=== PATIENT | female | born 1970 | race Caucasian/White ===

== ENCOUNTER 2016-06-14 14:24 | Emergency (ER) | payer OTHER ==
[2016-06-14 14:36] VITALS: TEMP 97.6; BMI 25.2
[2016-06-14 15:09] LABS: AUTOMATED BASOPHIL 0.8 % (0-2); AUTOMATED EOSINOPHIL 0.1 % (0-5); AUTOMATED LYMPH 8.5 % (17-44); AUTOMATED NEUTROPHIL 86.6 % (45-76); MPV 8.8 fL (7.4-10.4)
[2016-06-14 15:19] LABS: BLOOD UREA NITROGEN 10 MG/DL (7-17); CALCIUM 9.7 MG/DL (8.4-10.2); CALCULATED OSMOLALITY 277 MOs/Kg (270-290); CHLORIDE 104 mEq/L (98-107); GLUCOSE 123 MG/DL (70-99); SODIUM LEVEL 144 mEq/L (137-146); TOTAL PROTEIN 8.5 G/DL (6.3-8.2)
[2016-06-14] MEDS ORDERED: HYDROmorphone 1 MG INJECTION IV ONE (16:12)
[2016-06-14] MEDS ORDERED: ONDANSETRON HCL 4 MG/2 ML VIAL IV ONE (16:12)
[2016-06-14] MEDS ORDERED: NS 1,000 ML IV ONE (16:12)
--- NOTE | 2016-06-14 16:16 | EDPRACDOC ---
- General Information Chief Complaint: Abdominal Pain Stated Complaint: N/V/D Time Seen by Provider: 06/14/16 16:09 Information Source: Patient Mode Of Arrival: Car Home Medications: Home Medications Levothyroxine Sodium 200 mcg PO DAILY #30 tablet 09/03/14 Aspirin 81 mg PO DAILY 02/15/16 Ciprofloxacin HCl [Cipro] 500 mg PO BID #20 tab 06/14/16 Ondansetron [Zofran Odt] 4 mg PO Q6H PRN #20 tab.rapdis 06/14/16 Oxycodone HCl/Acetaminophen [Percocet 5-325 mg Tablet] 1 each PO Q4 #20 tablet 06/14/16 Promethazine [Phenergan] 25 mg PO Q8H PRN 06/14/16 Allergies/Adverse Reactions: Allergies Allergy/AdvReac Type Severity Reaction Status Date / Time Sulfa (Sulfonamide Allergy Hives* Verified 02/15/16 10:41 Antibiotics) [Sulfa(Sulfonamide Antibiotics)] - History of Present Illness Onset: 2 days HPI: PATIENT PRESENTS WITH NAUSEA AND VOMITING AND ABDOMINAL PAIN IN LOWER QUADS FOR 3 DAYS. NO FEVER. MILD COUGH AND CONGESTION. DIARRHEA PRESENT WELL. Pain Location: Reports: RLQ, LLQ Pain Context: Reports: Spontaneous Pain Severity: Moderate Pain Quality: Reports: Aching Pain Radiation: Reports: No Radiation Last Menstrual Period: hysterectomy : No Adult Abdominal History: Denies: Urolithiasis, Bowel Obstruction Female Abdominal History: Denies: Urolithiasis Female Associated Signs & Symptoms: Reports: Nausea, Vomiting, Diarrhea Oral Intake: Decreased Urinary Output: Normal ED Past Medical History - History Reviewed Yes Nurses notes reviewed and agree except as marked Travel Outside of [place] in the Last 3 Months?: No - Patient Medical History Cardiac History: Reports: Hypertension (histoy of HTN in system, patient denies at this time), Heart Attack (age 35), Cardiac Catheterization (PCTI), Hypercholesterolemia Psychological History: Reports: Depression, Anxiety Systemic History: Reports: Hypothyroidism Additional Past Medical History: RIGHT ANKLE FRACTURE WITH LIMITED FOLLOW-UP AND SHORTENED IMMOBILIZATION Surgical History: Reports: Cardiac Catheterization (PCTI), Tonsillectomy/ Adnoidectomy - Social Medical History Smoking Status: Heavy tobacco smoker (5 or more cigarettes/day or daily pipe/ cigar) EDM Review of Systems - Review of Systems ROS Negative Except as Marked: Yes All systems reviewed and were negative except as marked Constitutional: No Symptoms Reported. negative: Fever, Chills, Weakness, Fatigue, Loss of Appetite Eyes: No Symptoms Reported. negative: Redness, Blurred Vision, Double Vision, Discharge, Pain, Light Sensitive, Photophobia Ears: No Symptoms Reported. negative: Pain, Hearing Loss, Drainage, Ear Pulling Throat: No Symptoms Reported. negative: Pain, Swelling Nose: No Symptoms Reported. negative: Congestion, Bleeding, Discharge, Injection, Swelling, Deformity, Ecchymosis, Tender, Abrasion, Laceration Mouth: No Symptoms Reported. negative: Pain, Drooling Respiratory: No Symptoms Reported. negative: Cough, Brassy Cough, Barky Cough, Shortness of Breath, Wheezing, Hemoptysis Cardiovascular: No Symptoms Reported. negative: Chest Pain, Palpitations, Syncope, Edema, Orthopnea, PND, Skin Mottling, Cyanosis Gastrointestinal: Diarrhea, Nausea, Pain, Vomiting. negative: Constipation, Formula Intolerance, Melena Genitourinary: No Symptoms Reported. negative: Dysuria, Hematuria, Frequency, Discharge, Bleeding, Testicular Pain, Neurological: No Symptoms Reported. negative: Headache, Dizziness, Seizure, Numbness, Weakness, Speech Difficulty, Gait Difficulty Musculoskeletal: No Symptoms Reported. negative: Neck, Chestwall, Ribs, Back, Shoulder, Arm, Elbow, Forearm, Wrist, Hand, Pelvis, Hip, Femur, Knee, Leg, Ankle , Foot Integumentary: No Symptoms Reported. negative: Itching, Rash, Bruising, Wound Allergic/Immunologic: No Symptoms Reported. negative: Hives, Itching Hematologic: No Symptoms Reported. negative: Lymphadenopathy, Easy Bruising, Easy Bleeding Endocrine: No Symptoms Reported. negative: Weight Gain, Weight Loss Psychiatric: No Symptoms Reported. negative: Anxiety, Depression, Hallucinations, Insomnia, Suicidal - Physical Exam Constitutional: Alert (Awake), No apparent distress Oriented to: Time, Person, Place Last recorded Vital Signs: Last Vital Signs Temp 97.6 F 06/14/16 14:32 Pulse 68 06/14/16 16:45 Resp 18 06/14/16 16:45 BP 153/88 06/14/16 16:45 Pulse Ox 95 06/14/16 16:45 Oxygen Pulse Oxygen Saturation 95 O2 Device Room Air Oxygen Flow Rate Fraction of Inspired Oxygen ( FIO2) - HEENT Head: Normal ( normocephalic) Eye Exam: Normal (PERRL, EOMI, Sclera white) Oropharynx: Normal (Pharynx:Moist without exudate,Gums-no swelling) Tympanic Membrane: Normal ENT EAC: Normal TMJ: Normal Nose: No Symptoms Reported (septum midline) Neck: Normal (FROM, trachea at midline) - Respiratory/Cardiovascular Respiratory: Normal - CTA (BBS clear to auscultation without adventitious sounds ) Cardiovascular: Normal (RRR without murmur, gallop or rub) - GI Auscultation: Normal (NABS) Palpation: Normal (Soft,No rebound or guarding, non distended) Tenderness: Non tender Calles's Sign: Negative - Musculoskeletal Back: Normal (Non-Tender) Extremities: Normal (Normal tone, Pulses 2+ No cyanosis or edema, FROM) - Integumentary Skin: Normal, Warm, Dry Lymphatics: Normal (no adenopathy) - Neurologic Memory Impaired: Normal Motor Function: Normal (Normal tone, Pulses 2+ No cyanosis or edema, FROM) Cranial Nerve: Normal (CN II-X11 intact sensation, strength 5/5) Cerebellar: Normal Mood Description: Normal Perception: Normal - Differential Diagnosis Intussusception - Results 06/14/16 14:39 06/14/16 14:39 WBC 13.6 xk/uL (3.8-10.8) H 06/14/16 14:39 RBC 5.08 xM/uL (4.20-5.40) 06/14/16 14:39 Hgb 17.4 g/dL (12.0-16.0) H 06/14/16 14:39 Hct 51.9 % (36-47) H 06/14/16 14:39 MCV 102 fL (81-99) H 06/14/16 14:39 MCH 34.3 pg (27-32) H 06/14/16 14:39 MCHC 33.6 g/dl (33-36) 06/14/16 14:39 RDW 15.1 % (11.5-14.5) H 06/14/16 14:39 Plt Count 276 xk/uL (130-400) 06/14/16 14:39 MPV 8.8 fL (7.4-10.4) 06/14/16 14:39 Neut % (Auto) 86.6 % (45-76) H 06/14/16 14:39 Lymph % (Auto) 8.5 % (17-44) L 06/14/16 14:39 Braxton % (Auto) 4.0 % (3-10) 06/14/16 14:39 Eos % (Auto) 0.1 % (0-5) 06/14/16 14:39 Baso % (Auto) 0.8 % (0-2) 06/14/16 14:39 Absolute Neuts (auto) 11.70 xk/uL (1.7-8.2) H 06/14/16 14:39 Absolute Lymphs (auto) 1.09 xk/uL (0.65-4.75) 06/14/16 14:39 Sodium 144 mEq/L (137-146) 06/14/16 14:39 Potassium 3.7 mEq/L (3.5-5.1) 06/14/16 14:39 Chloride 104 mEq/L (98-107) 06/14/16 14:39 Carbon Dioxide 25 mMOL/L (22-33) 06/14/16 14:39 Anion Gap 19 mEq/L (8-16) H 06/14/16 14:39 BUN 10 MG/DL (7-17) 06/14/16 14:39 Creatinine 0.80 MG/DL (0.52-1.04) 06/14/16 14:39 Estimated GFR (MDRD) > 60 mL/min (>=60) 06/14/16 14:39 Glucose 123 MG/DL (70-99) H 06/14/16 14:39 Calculated Osmolality 277 MOs/Kg (270-290) 06/14/16 14:39 Calcium 9.7 MG/DL (8.4-10.2) 06/14/16 14:39 Total Bilirubin 1.0 MG/DL (0.2-1.3) 06/14/16 14:39 AST 20 IU/L (14-36) 06/14/16 14:39 ALT 27 IU/L (9-52) 06/14/16 14:39 Alkaline Phosphatase 63 IU/L (38-126) 06/14/16 14:39 Total Protein 8.5 G/DL (6.3-8.2) H 06/14/16 14:39 Albumin 4.9 G/DL (3.5-5.0) 06/14/16 14:39 Amylase 71 IU/L (30-110) 06/14/16 14:39 Lipase 49 U/L (23-300) 06/14/16 14:39 Urine Color Yellow 06/14/16 18:15 Urine Clarity Clear 06/14/16 18:15 Urine pH 6.0 (5.0-8.0) 06/14/16 18:15 Ur Specific [place] 1.010 (1.003-1.035) 06/14/16 18:15 Urine Protein 1+ (NEG/TRACE) H 06/14/16 18:15 Urine Glucose (UA) Neg (NEGATIVE) 06/14/16 18:15 Urine Ketones Neg (NEGATIVE) 06/14/16 18:15 Urine Occult Blood 1+ (NEG/TRACE) H 06/14/16 18:15 Urine Nitrite Neg (NEGATIVE) 06/14/16 18:15 Urine Bilirubin Neg (NEGATIVE) 06/14/16 18:15 Urine Urobilinogen <2.0 MG/DL (0-1) 06/14/16 18:15 Ur Leukocyte Esterase Neg (NEGATIVE) 06/14/16 18:15 Urine RBC 0-2 (0-5) 06/14/16 18:15 Urine WBC 2-5 (0-5) 06/14/16 18:15 Ur Epithelial Cells 4+ 06/14/16 18:15 Urine Bacteria Few (NEG/FEW) 06/14/16 18:15 Urine Mucus Mod (NEG/OCC) H 06/14/16 18:15 Microbiology 06/14/16 16:50 Influenza Type A Antigen Screen - Final Nasal Washing/Aspirate Or Swab NEGATIVE Please note: A NEGATIVE result does not exclude an influenza virus infection. It is a presumptive result and, if required, confirmation should be done using either a virus culture or an FDA-cleared influenza A&B molecular assay. ("NORMAL" value = "NEGATIVE".) Influenza Type B Antigen Screen - Final NEGATIVE Please note: A NEGATIVE result does not exclude an influenza virus infection. It is a presumptive result and, if required, confirmation should be done using either a virus culture or an FDA-cleared influenza A&B molecular assay. ("NORMAL" value = "NEGATIVE".) Lab Results 06/14/16 06/14/16 06/14/16 18:15 14:39 14:39 WBC 13.6 H RBC 5.08 Hgb 17.4 H Hct 51.9 H MCV 102 H MCH 34.3 H MCHC 33.6 RDW 15.1 H Plt Count 276 MPV 8.8 Neut % (Auto) 86.6 H Lymph % (Auto) 8.5 L Braxton % (Auto) 4.0 Eos % (Auto) 0.1 Baso % (Auto) 0.8 Absolute Neuts (auto) 11.70 H Absolute Lymphs (auto) 1.09 Sodium 144 Potassium 3.7 Chloride 104 Carbon Dioxide 25 Anion Gap 19 H BUN 10 Creatinine 0.80 Estimated GFR (MDRD) > 60 Glucose 123 H Calculated Osmolality 277 Calcium 9.7 Total Bilirubin 1.0 AST 20 ALT 27 Alkaline Phosphatase 63 Total Protein 8.5 H Albumin 4.9 Amylase 71 Lipase 49 Urine Color Yellow Urine Clarity Clear Urine pH 6.0 Ur Specific [place] 1.010 Urine Protein 1+ H Urine Glucose (UA) Neg Urine Ketones Neg Urine Occult Blood 1+ H Urine Nitrite Neg Urine Bilirubin Neg Urine Urobilinogen <2.0 Ur Leukocyte Esterase Neg Urine RBC 0-2 Urine WBC 2-5 Ur Epithelial Cells 4+ Urine Bacteria Few Urine Mucus Mod H - Departure Yes I personally saw and evaluated the patient. Disposition: Home Condition: Stable Final Diagnosis: Gastroenteritis Instructions: Acute Abdominal Pain (ED), Gastroenteritis (ED) Education/Counseling Given To: Patient Education/Counseling Given Regarding: Diagnosis, Treatment, Prognosis, Follow Up Referrals: Harrison James Jr, MD [Primary Care Provider] - One Week Ernesto Mei MD [Staff Physician] - One Week Prescriptions: Ciprofloxacin HCl [Cipro] 500 mg PO BID #20 tab Ondansetron [Zofran Odt] 4 mg PO Q6H PRN #20 tab.rapdis PRN Reason: Nausea/Vomiting Oxycodone HCl/Acetaminophen [Percocet 5-325 mg Tablet] 1 each PO Q4 #20 tablet - Physician Consulted Surgery Time Called: 18:41 Provider Called: Ernesto Mei (AFTER REVIEW OF CT- NO CLINICAL SIGNIFICANCE TO INTUSSCEPTION. OK TO D/C ) Time Visual Communications Instructor Returned Call: 18:42
[2016-06-14] MEDS ORDERED: Pharmacy Review for Metformin - IV Contrast Given SCH (17:00)
--- NOTE | 2016-06-14 17:35 | DIRPT ---
CLINICAL DATA: Lower abdominal pain with nausea, vomiting, and diarrhea for 3 days. EXAM: CT ABDOMEN AND PELVIS WITH CONTRAST TECHNIQUE: Multidetector CT imaging of the abdomen and pelvis was performed using the standard protocol following bolus administration of intravenous contrast. CONTRAST: 100 cc Isovue 370 COMPARISON: 09/03/2014 FINDINGS: Lower chest: Coronary atherosclerosis in the left anterior descending coronary artery. Hepatobiliary: Mild but chronic prominence of the common bile duct. Pancreas: Unremarkable Spleen: Unremarkable Adrenals/Urinary Tract: Unremarkable Stomach/Bowel: 1.1 cm segment of jejuno jejunal intussusception, image 61 series 601 and image 44 series 3. No obvious lead point or lesion in this vicinity. Relatively empty colon with accentuation of the colon wall likely from nondistention. Borderline dilated loop of small bowel in the left upper quadrant. Vascular/Lymphatic: Aortoiliac atherosclerotic vascular disease. Reproductive: Uterus absent. Ovaries unremarkable. Other: No supplemental non-categorized findings. Musculoskeletal: Unremarkable IMPRESSION: 1. Borderline dilated loop of left upper quadrant small bowel with a small focus of short-segment intussusception in the small bowel, possibly from a localized enteritis. I do not see a specific lesion or lead point for the small jejuno jejunal intussusception. 2. Coronary atherosclerosis. 3. Mild but chronic prominence of the common bile duct. 4. Aortoiliac atherosclerotic vascular disease. Electronically Signed By: Jerod Koo M.D. On: 06/14/2016 17:33
[2016-06-14 18:28] LABS: LEUKOCYTES/URINE NEG (NEGATIVE); NITRITE/URINE NEG (NEGATIVE); RBC/URINE 0-2 (0-5); URINE OCCULT BLOOD 1+ (NEG/TRACE)
[2016-06-14] MEDS ORDERED: CIPROFLOXACIN HCL 500 MG TAB PO ONE (19:07)
[2016-06-14 19:28] VITALS: BP 156/94; PULSE 75
== END 2016-06-14 19:20 | disposition home or self-care (01) ==
LOC: ED 14:24
DX: K52.9 Noninfective gastroenteritis and colitis, unspecified (principal); E03.9 Hypothyroidism, unspecified; E78.00 Pure hypercholesterolemia, unspecified; Z79.899 Other long term (current) drug therapy; F17.200 Nicotine dependence, unspecified, uncomplicated
CPT/HCPCS: 36415; 74177; 80053; 81001; 82150; 83690; 85025; 87804; 96361; 96374; 96375; 99284; A9698; J1170; J2405; J3490

== ENCOUNTER 2016-07-14 17:19 | Emergency (ER) | payer SELFPAY ==
[2016-07-14 17:50] VITALS: BP 131/80; PULSE 92; TEMP 98.5; BMI 24.9
[2016-07-14] MEDS ORDERED: IBUPROFEN 600 MG TAB PO ONE (18:36)
--- NOTE | 2016-07-14 18:41 | DIRPT ---
CLINICAL DATA: Acute right hip pain after fall today. Initial encounter. EXAM: RIGHT HIP (WITH PELVIS) 2-3 VIEWS COMPARISON: April 05, 2008. FINDINGS: There is no evidence of hip fracture or dislocation. There is no evidence of arthropathy or other focal bone abnormality. IMPRESSION: Normal right hip. Electronically Signed By: Harrison Dangelo Jr, M.D. On: 07/14/2016 18:38
--- NOTE | 2016-07-14 18:42 | DIRPT ---
CLINICAL DATA: Fall this morning, right knee pain EXAM: RIGHT KNEE - COMPLETE 4+ VIEW COMPARISON: None. FINDINGS: Soft tissue anchor at the upper margin of the lateral femoral condyle. Lucencies within the distal femur and proximal tibia suggesting previous ACL repair. Osseous alignment is normal. No fracture line or displaced fracture fragment seen. Probable small joint effusion within the suprapatellar bursa. Superficial soft tissues unremarkable. IMPRESSION: 1. No acute osseous abnormality. No osseous fracture or dislocation. 2. Probable small joint effusion. 3. Surgical changes suggestive of a previous ACL repair. Electronically Signed By: Stephen Bravo M.D. On: 07/14/2016 18:39
--- NOTE | 2016-07-14 18:52 | EDPRACDOC ---
- General Chief Complaint: Fall Stated Complaint: RIGHT LEG PAIN Time Seen by Provider: 07/14/16 17:59 Information Source: Patient - History of Present Illness Onset: this morning HPI: PT PRESENTS TODAY WITH MULTIPLE BRUISES FROM FALL. 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 NO APPARENT DISTRESS. Pain Severity: Reports: Moderate Injuries/Pain Location: Reports: face, pelvis, lower extremity Reason for Fall: Reports: slipped Loss of Consciousness: no loss of consciousness Modifying Factors: improves with: movement Associated Symptoms (Fall): Reports: denies symptoms Allergies/Adverse Reactions: Allergies Sulfa (Sulfonamide Antibiotics) [Sulfa(Sulfonamide Antibiotics)] Allergy ( Verified 07/14/16 17:47) Hives* Home Medications: Ambulatory Orders Levothyroxine Sodium 200 mcg PO DAILY #30 tablet 09/03/14 Meloxicam [Mobic] 7.5 mg PO BID #20 tab 07/14/16 ED Past Medical History - History Reviewed Yes Nurses notes reviewed and agree except as marked - Patient Medical History Cardiac History: Reports: Hypertension (histoy of HTN in system, patient denies at this time), Heart Attack (age 35), Cardiac Catheterization (PCTI), Hypercholesterolemia Psychological History: Reports: Anxiety. Denies: Depression Systemic History: Reports: Hypothyroidism Additional Past Medical History: RIGHT ANKLE FRACTURE WITH LIMITED FOLLOW-UP AND SHORTENED IMMOBILIZATION Surgical History: Reports: Hysterectomy, Cardiac Catheterization (PCTI), Tonsillectomy/Adnoidectomy - Social Medical History Smoking Status: Heavy tobacco smoker (5 or more cigarettes/day or daily pipe/ cigar) EDM Review of Systems - Review of Systems ROS Negative Except as Marked: Yes All systems reviewed and were negative except as marked Constitutional: No Symptoms Reported Respiratory: No Symptoms Reported Cardiovascular: No Symptoms Reported Gastrointestinal: No Symptoms Reported Neurological: No Symptoms Reported Musculoskeletal: Hip, Knee Integumentary: Bruising - Physical Exam Constitutional: Alert (Awake), No apparent distress Oriented to: Time, Person, Place Last recorded Vital Signs: Last Vital Signs Temp 98.5 F 07/14/16 17:48 Pulse 92 07/14/16 17:48 Resp 20 07/14/16 17:48 BP 131/80 07/14/16 17:48 Pulse Ox 100 07/14/16 17:48 Oxygen Pulse Oxygen Saturation 100 O2 Device Room Air Oxygen Flow Rate Fraction of Inspired Oxygen ( FIO2) - HEENT Head: Normal Eye Exam: Normal Oropharynx: Other (SMALL LAC TO LOWER LIP FROM BITE; NO BLEEDING; FLAP OF SKIN) Tympanic Membrane: Normal ENT EAC: Normal Nose: No Symptoms Reported Neck: Normal, Denies Pain, Midline - Respiratory/Cardiovascular Respiratory: Normal - CTA Cardiovascular: Normal - GI Palpation: Normal Tenderness: Non tender - Musculoskeletal Back: Normal Extremities: Other (NOTED BRUISE TO RIGHT HIP/THIGH WITH ABRASION W/OUT APPARENT DEFORMITY; ALSO NOTED BRUISING WITH MILD SWELLING TO RIGHT KNEE W/OUT DEFORMITY; PEDAL PULSES NORMAL) - Integumentary Skin: Normal Lymphatics: Normal - Neurologic Cerebellar: Normal Mood Description: Normal Thought: Coherent Perception: Normal ED Injury/Fall Exam - Physical Exam Head Injury: no evidence of injury Extremity Exam: pelvis stable, pain with movement Skin: Normal - Perley Coma Score Best Eye Response (Julianne): (4) open spontaneously Best Verbal Response (Julianne): (5) oriented Best Motor Response (Perley): (6) obeys commands Perley Total: 15 Decision Time to Discharge: 18:47 - Departure Disposition: Home Condition: Good Final Diagnosis: Accidental fall Knee sprain Qualifiers: Encounter type: initial encounter Laterality: right Instructions: RICE Therapy (ED) Education/Counseling Given To: Patient Education/Counseling Given Regarding: Diagnosis, Treatment, Follow Up Referrals: Harrison James Jr, MD [Primary Care Provider] - One Week Jamari Becerra MD [Staff Physician] - One Week Prescriptions: New Meloxicam [Mobic] 7.5 mg PO BID #20 tab No Action Levothyroxine Sodium 200 mcg PO DAILY #30 tablet Additional Instructions: REST KNEE WITH ICE. IF SYMPTOMS PERSIST, FOLLOW UP WITH ORTHOPEDIC.
== END 2016-07-14 19:10 | disposition home or self-care (01) ==
LOC: EDMC 17:19
DX: S83.91XA Sprain of unspecified site of right knee, initial encounter (principal); W19.XXXA Unspecified fall, initial encounter; Y93.9 Activity, unspecified
CPT/HCPCS: 73502; 73564; 99282; J3490